=== PATIENT | female | born 1985 | race African-American/Black ===

== ENCOUNTER 2024-11-25 14:03 | Outpatient (AMB) | payer OTHER, SELFPAY ==
--- NOTE | 2024-11-25 14:28 | A.OFFPC_ITS ---
Vital Signs 11/25/24 14:30 Height 5 ft 7.72 in Weight 250 lb 8 oz BMI 38.4 BP 120/60 Blood Pressure Location Lt brachial Position Sitting Pulse 76 Pulse Source Pulse Oximeter Temp 97.5 F Temp Source Temporal Artery Scan Pulse Oximetry (%) 98 Oxygen Delivery Method Room Air Intake Visit Reasons: establish care Intake Note: Patient is a new patient here to establish care for Anemia. Transferring care from unknown. Medical records have not been requested and have not received. Requesting for tites for immunization. Hotel Front Desk Clerk Required: No Receptionist Clerk: Not Required per policy Accompanied by: Self / Same As Patient Allergies Seasonal Allergies Allergy (Intermediate, Verified 11/25/24 14:36) Runny Nose Tobacco use date assessed: 11/25/24 Dental Screening Dental Screen Date: 11/25/24 Did you have a dental visit in the last 12 months?: No Did you have a dental problem in the last 6 months where you did not have access to dental care?: No Was dental information given to patient?: No [facility] Surgical History (Updated 11/25/24 @ 14:38 by REED Parkinson) History of cystostomy History of ear, nose, and throat (ENT) surgery Family History (Updated 11/25/24 @ 14:38 by REED Parkinson) Other Mental health disorder Substance use disorder Social History (Updated 11/25/24 @ 14:38 by REED Parkinson) Housing: House Alcohol intake: current Alcohol intake frequency: a few times a week Patient Tobacco Use Status: Former Tobacco user e-Cigarette/Vaping Use: Former Use Second Hand Smoke Exposure: Yes service: No Current occupational status: employed and student Cognitive needs: No Hearing needs: No Vision needs: No Questionnaire PHQ-9 Over the last 2 weeks, how often have you been bothered by any of the following problems? 1. Little interest or pleasure in doing things: not at all 2. Feeling down, depressed, or hopeless: not at all 3. Trouble falling or staying asleep, or sleeping too much: not at all 4. Feeling tired or having little energy: not at all 5. Poor appetite or overeating: not at all 6. Feeling bad about yourself - or that you are a failure or have let yourself or your family down: not at all 7. Trouble concentrating on things, such as reading the newspaper or watching television: not at all 8. Moving or speaking so slowly that other people could have noticed. Or the opposite - being so fidgety or restless that you have been moving around a lot more than usual: not at all 9. Thoughts that you would be better off or of hurting yourself in some way: not at all Total score: 0 Depression Screening Interpretation: Negative Depression Screening Done: Yes Source: Developed by Drs. Junaid Coffman, Kisha Davis, Bon Ng and colleagues, with an educational brina from [employer]. Thrive Questionnaire Date Thrive assessed: 11/25/24 I am a: Patient What is your living situation today?: I have a steady place to live Within the past 12 months, did the food you bought not last and you didn't have the money to get more?: Never true Within the past 12 months, did you worry whether your food would run out before you got money to buy more?: Never true Do you have trouble paying for medicines?: No Do you have trouble getting transportation to medical appointments?: No Do you have trouble paying your heating and electricity bill?: No Do you have trouble taking care of your child, family member or friend?: No Do you have trouble with day-to-day activities such as bathing, preparing meals, shopping, managing finances, etc.?: No Are you currently unemployed and looking for a job?: No Are you interested in more education?: Yes Please select the resources that you would like help with: Education Currently or been in a relationship where the following occur: No concerns reported THRIVE Score: 0 AUDIT C Alcohol Use Questionnaire (AUDIT-C) 1. How often do you have a drink containing alcohol?: 2-4 times a month 2. How many drinks containing alcohol do you have on a typical day when you are drinking?: 1 or 2 3. How often do you have six or more drinks on one occasion?: Never Total Score: 2 DIA-7 AMB Questionnaire DIA-7 Date DIA - 7 assessed: 11/25/24 Feeling nervous, anxious, or on edge: 0 = Not at all Not being able to stop or control worryin = Not at all Worrying too much about different things: 0 = Not at all Trouble relaxin = Not at all Being so restless that it is hard to sit still: 0 = Not at all Becoming easily annoyed or irritable: 0 = Not at all Feeling afraid as if something awful might happen: 0 = Not at all Total DIA-7 score (0-4 normal; 5-9 mild; 10-14 moderate; 15-21 severe): 0 Source: Developed by Drs. Junaid Coffman, Kisha Davis, Bon Ng and colleagues, with an educational brina from [employer]. Physical exam (Primary Care) Vital Signs: Last Vital Signs Temp 97.5 F 11/25/24 14:30 Pulse 76 11/25/24 14:30 BP 120/60 11/25/24 14:30 Pulse Ox 98 11/25/24 14:30 Oxygen Delivery Method Room Air 11/25/24 14:30 BMI result Body Mass Index 38.4 Tobacco/Smoking Status: Tobacco use Status Tobacco use date assessed 11/25/24 11/25/24 14:39 Patient Tobacco Use Status Former Tobacco user 11/25/24 14:39 e-Cigarette/Vaping Use Former Use 11/25/24 14:39 PHQ-9: PHQ-9 Score PHQ-9: Total score 0 11/25/24 14:39 Depression Screening Interpretation: Negative Thrive Assessment: Date of Thrive Assessment Date Thrive assessed 11/25/24 11/25/24 14:39 Currently or been in a relationship where the following occur: No concerns reported Coding Level of Care Code New Pt Prev Care 40-64y(26128) Diagnoses Screening examination for infectious disease Z11.9 Annual physical exam Z00.00 Assessment & Plan Assessment & Plan (1) Screening examination for infectious disease: Code(s): Z11.9 - Encounter for screening for infectious and parasitic diseases, unspecified Plan: Blood work ordered (2) Annual physical exam: Code(s): Z00.00 - Encounter for general adult medical examination without abnormal findings Plan: Screening Mammogram ordered Plan History of Present Illness The patient is a 39-year-old female presenting to [facility] and requesting an annual physical. She has? missing immunization records that are needed for her upcoming nursing school program requirements. Her immunization history lacks documentation due to a loss from her previous healthcare provider, necessitating blood work to confirm immunity, particularly for hepatitis B and tetanus boosters, if indicated. 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 The patient has yet to pursue a diagnostic work-up for this condition. Concerns regarding obesity are mentioned, with an emphasis on evaluating hormone and cortisol levels due to challenges with weight loss. The patient admits to not having a consultation with a healthcare provider in almost ten years, apart from child health appointments. Health maintenance screenings are overdue, including a first-time mammogram and a Pap smear. Though not sexually active for the past three years, she seeks STD testing to cover all health bases. She plans to accomplish these health tasks before moving for education purposes. Social History - Occupation: gas truck driver, involves prolonged sitting. - Education: Enrolling in nursing school. - Sexual Activity: Not active for three years, yet requests comprehensive STD testing. - No recent primary healthcare provider engagement. Review of Systems - Musculoskeletal: Reports knee pain impacting mobility. - Endocrine: Reports difficulty losing weight, interested in hormone and cortisol evaluation. Physical Exam General: Appearance normal, both eyes and all related structures Nutritional Appearance: Well nourished Orientation/consciousness: Patient oriented x3 Limitations: Cannot bend, cannot do a full squat due to a bad knee Head: Normal to inspection Neck: Normal visual inspection Chest: Normal palpation of entire chest wall Respiratory: Normal respiratory effort Neurology: Patient oriented x3 Results Plan Blood work to establish immunization status, including hepatitis B and tetanus, will be done to meet nursing program needs. Routine blood tests will assess hormone levels, especially cortisol, to evaluate obesity-related concerns. Screening for breast and cervical cancer will be initiated with ordered mammogram and Pap smear tests. STD testing is advised and will be performed upon conservative request. Follow-up is scheduled in one month for results review and further assessments, particularly regarding knee pain, once additional requirements are indicated by education institutions or surgical departments. Patient was informed and verbally consented to the use of an ambient scribe for clinic note documentation during this visit. Discussion Notes I discussed obtaining blood work to verify immunization against hepatitis B and tetanus in line with school requirements. Testing for hormone and cortisol levels was proposed to explore reasons for the patient?s weight loss difficulties. I placed orders for a mammogram and Pap smear given the patient?s lack of screenings. We agreed on full STD testing for precautionary purposes. The patient was advised to initiate these investigations promptly and to return for further evaluation. Arrangements for follow-up are in place, with recommendations for an appointment next month on a . Guidance on addressing knee pain will follow upon further detailing of institutional health requirements. Patient Instructions - Complete blood work to evaluate immunization status and hormone levels. - Schedule and attend mammogram and Pap smear appointments. - Proceed with STD testing at your convenience. - Return in one month for evaluation of test results and follow-up care. - Ensure additional forms from school or surgeon are submitted for further requirements. - Address knee concerns in subsequent appointments as needed. Orders: Orders Complete Blood Count no Diff Today Z00.00 - Encounter for general adult medical examination without abnormal findings, Z11.9 - Encounter for screening for infectious and parasitic diseases, unspecified Lipid Panel Today Z00.00 - Encounter for general adult medical examination without abnormal findings, Z11.9 - Encounter for screening for infectious and parasitic diseases, unspecified Liver Panel Today Z00.00 - Encounter for general adult medical examination without abnormal findings, Z11.9 - Encounter for screening for infectious and parasitic diseases, unspecified Thyroid Stimulating Hormone Today Z00.00 - Encounter for general adult medical examination without abnormal findings, Z11.9 - Encounter for screening for infectious and parasitic diseases, unspecified UA and rflx microscopic Today Z00.00 - Encounter for general adult medical examination without abnormal findings, Z11.9 - Encounter for screening for infectious and parasitic diseases, unspecified CT NG by PCR Today Z00.00 - Encounter for general adult medical examination without abnormal findings, Z11.9 - Encounter for screening for infectious and parasitic diseases, unspecified Rubella IgG Antibody Today Z00.00 - Encounter for general adult medical examination without abnormal findings, Z11.9 - Encounter for screening for infectious and parasitic diseases, unspecified Mumps Virus IgG Antibody Today Z00.00 - Encounter for general adult medical examination without abnormal findings, Z11.9 - Encounter for screening for infectious and parasitic diseases, unspecified Basic Metabolic Panel Today Z00.00 - Encounter for general adult medical examination without abnormal findings, Z11.9 - Encounter for screening for infectious and parasitic diseases, unspecified T4 Thyroxine Today Z00.00 - Encounter for general adult medical examination without abnormal findings, Z11.9 - Encounter for screening for infectious and parasitic diseases, unspecified HIV Ab/Ag Today Z00.00 - Encounter for general adult medical examination without abnormal findings, Z11.9 - Encounter for screening for infectious and parasitic diseases, unspecified Syphilis Screen Today Z00.00 - Encounter for general adult medical examination without abnormal findings, Z11.9 - Encounter for screening for infectious and parasitic diseases, unspecified Rubeola IgG (Measles) Today Z00.00 - Encounter for general adult medical examination without abnormal findings, Z11.9 - Encounter for screening for infectious and parasitic diseases, unspecified MM screening mammo BI Today Z12.31 - Encounter for screening mammogram for malignant neoplasm of breast
[2024-11-25 14:30] VITALS: BP 120/60; PULSE 76; TEMP 36.4; O2SAT 98; BMI 38.4
== END 2024-11-25 15:11 | disposition home or self-care (01) ==
PROVIDERS: Visit Provider Internal Medicine
DX: Z11.9 Encounter for screening for infectious and parasitic diseases, unspecified (principal); Z00.00 Encounter for general adult medical examination without abnormal findings

== ENCOUNTER → 2024-11-25 14:03 | Outpatient (BNVA) | payer OTHER, SELFPAY | PROVIDERS: Visit Provider Internal Medicine | DX: Z00.00 Encounter for general adult medical examination without abnormal findings (principal) | CPT/HCPCS: 99386 ==

== ENCOUNTER 2024-12-13 08:57 | Outpatient (REF) | payer OTHER, SELFPAY ==
[2024-12-13 14:26] LABS: Appearance Urine Clear; Color Urine Yellow; Glucose Urine UA Negative (Negative); Leukocyte Esterase Urine Negative (Negative); Nitrite Urine Negative (Negative); PH 8.5 (5.0-9.0); Urine Blood Negative (Negative); Urine Ketones Negative (Negative); Urine Protein Negative (Neg-Trace)
[2024-12-13 14:27] LABS: Hematocrit 31.7 % (37.0-47.0); Mean Corpuscular HGB Conc 28.4 g/dl (31.0-35.0); Mean Corpuscular Hemoglobin 20.6 pg (27.0-33.0); Mean Corpuscular Volume 72.7 fL (80.0-98.0); Mean Platelet Volume 10.6 fL (9.4-12.3); Platelet Count 449 X10*3/uL (160-400); Red Blood Count 4.36 X10*6/uL (4.20-5.50); Red Cell Distribution Width 21.2 % (11.0-16.0); White Blood Count 5.6 X10*3/uL (4.8-10.8)
[2024-12-13 14:47] LABS: Alanine Aminotransferase 18 U/L (0-31); Albumin Level 3.8 g/dL (3.5-5.0); Alkaline Phosphatase 42 U/L (39-117); Anion Gap 10 (12-20); Aspartate Amino Transferase 26 U/L (5-31); Bilirubin Direct 0.2 mg/dL (0.0-0.5); Bilirubin Total 0.5 mg/dL (0.0-1.0); Blood Urea Nitrogen 10 mg/dL (9-16); Calcium 8.6 mg/dL (8.4-10.2); Carbon Dioxide 25 mmol/L (22-29); Chloride 106 mmol/L (96-108); Cholesterol 169 mg/dL (<200); Estimated Glomerular Filt Rate > 60; Glucose Random 91 mg/dL (60-115); HDL Cholesterol 68 mg/dL (>40); LDL Cholesterol Calculated 84 mg/dL (<100); Potassium 3.8 mmol/L (3.3-5.1); Sodium 137 mmol/L (135-145); Total Protein 7.3 g/dL (6.5-8.0); Triglycerides 85 mg/dL (<150)
[2024-12-13 14:57] LABS: Thyroid Stimulating Hormone 0.83 uIU/mL (0.32-4.0)
[2024-12-13 15:02] LABS: T4 Thyroxine 5.8 ug/dL (4.5-12.0)
[2024-12-14 05:19] LABS: Syphilis Screen Nonreactive (Nonreactive)
[2024-12-14 05:31] LABS: HIV AB/AG Nonreactive (Nonreactive); HIV Num 1 0.09 S/CO (0.00-0.99)
[2024-12-14 19:02] LABS: Rubella IgG Antibody 1.56 Index
[2024-12-15 03:32] LABS: Rubeola IgG (Measles) >300.00 AU/mL
== END 2024-12-13 08:58 | disposition home or self-care (01) ==
LOC: HO.CHCLDS 08:57
PROVIDERS: Visit Provider Internal Medicine
DX: Z00.00 Encounter for general adult medical examination without abnormal findings (principal); Z11.9 Encounter for screening for infectious and parasitic diseases, unspecified
CPT/HCPCS: 36415; 80048; 80061; 80076; 81003; 84436; 84443; 85027; 86735; 86762; 86765; 86780; 87389

== ENCOUNTER 2024-12-15 09:20 | Outpatient (REF) | payer OTHER, SELFPAY | END 2024-12-15 09:21 | disposition home or self-care (01) | LOC: HO.LAB 09:20 | PROVIDERS: PCP Internal Medicine; Visit Provider Advanced Practice Midwife | DX: Z01.419 Encounter for gynecological examination (general) (routine) without abnormal findings (principal); Z11.3 Encounter for screening for infections with a predominantly sexual mode of transmission; D22.9 Melanocytic nevi, unspecified | CPT/HCPCS: 81515; 86780; 86803; 87340; 87389; 87491; 87591; 87626; 88175; 99386; 99459 ==

== ENCOUNTER 2024-12-15 09:20 | Outpatient (AMB) | payer OTHER, SELFPAY ==
[2024-12-15 09:23] VITALS: BP 118/70; BMI 38.0
--- NOTE | 2024-12-15 09:23 | MHC.OFFVIS ---
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 Perianesthesia Rn Required: No Perianesthesia Rn Services: Perianesthesia Rn Present Information Interpreted: clinical only Art Specialist: Art Specialist Present Allergies Seasonal Allergies Allergy (Intermediate, Verified 12/15/24 09:24) Runny Nose Medication List - Last Reconciled 12/15/24 by Heidi Barragan CNM No Known Home Meds Is last menstrual period known: Yes Last menstrual period: 12/04/24 HPI HPI DELPHI PROGRAMMER annual exam/Internal Referral: Details: 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 She is from this area originally but she was in [place] for several years and just moved back about 6 months ago. 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 She has a bad right knee had gives her lots of difficulty she is waiting for an orthopedic referral to have it evaluated she is able to exercise on an elliptical to try to keep it moving but her drive in positions give her difficulty.. She is a having had 1 very early miscarriage and 1 2nd trimester loss a 20 +weeks it was during COVID so they could not tell her what possible causes could have been she herself had COVID at the time. She is not sexually active and has not been for about 3 years but if she did become active she would use condoms she is interested in getting testing for all relevant STDs just to check everything out. Her primary care provider has ordered her mammogram and that is going to happen next week she has an appointment with her primary care provider tomorrow. [facility] Surgical History History of cystostomy History of ear, nose, and throat (ENT) surgery Family History Other Mental health disorder Substance use disorder Social History Housing: House Alcohol intake: current Alcohol intake frequency: a few times a week Patient Tobacco Use Status: Former Tobacco user e-Cigarette/Vaping Use: Former Use Second Hand Smoke Exposure: Yes service: No Current occupational status: employed and student Cognitive needs: No Hearing needs: No Vision needs: No Female Reproductive History Menstrual Age of Menarche: 15 Duration of menses: 3-5 days Date of last menstrual period: 12/04/24 control method: none Total pregnancies: 0 History of abnormal pap smear: No (previous pap ,2020,neg.per pt.) Physical Exam Vital Signs: Last Vital Signs BP 118/70 12/15/24 09:23 BMI result Body Mass Index 38.0 Const General: healthy appearing, comfortable, no acute distress, well developed and alert Nutritional Appearance: average body habitus Orientation/consciousness: patient oriented x3 Limitations: no limitations HEENT Head: Yes normocephalic Neck Neck: Yes normal visual inspection Thyroid: Thyroid normal Chest Chest palpation & inspection: normal inspection of the chest Breast/axilla inspection: normal inspection of the breasts and normal inspection of the axillae Breast/axilla palpation: normal palpation of the breasts and normal palpation of the axillae Resp Effort & Inspection: normal respiratory effort GI Inspection: Yes normal to inspection, No Abdominal wall edema and No distended Palpation (GI): Soft to palpation and nontender Other: External exam within normal limits with the exception of a tiny mole on right labia and a larger 2 cm irregular rather bumpy mole that is dark pigmented on left side of perineum. She said a cyst was removed from it about 10 years ago. Vagina pink and moist scant white discharge consistent with normal discharge possible luteal phase cervix appears multiparous, round pink smooth healthy appearing, scant bleeding with Cytobrush. Cervix and uterus mobile nontender not enlarged adnexa nonenlarged nontender good tone with kegel. General: Yes bladder normal to palpation External Female Exam: normal external appearance and normal appearance of the urethra Speculum Exam - Vagina: normal appearance of the vagina, normal palpation and normal vaginal discharge Speculum Exam - Cervix: normal appearance of the cervix, normal palpation and nontender Bimanual exam- vagina & uterus: normal bimanual exam, normal palpation, uterine size normal, bladder normal to palpation, consistency normal, normal palpation, uterine mobility normal, uterine shape normal, No Cervical tenderness present, non-tender and no cervical motion tenderness Bimanual Exam- Adnexa, other: normal adnexae, no masses, normal and No adnexal tenderness Neuro General: patient oriented x3 Assessment & Plan Assessment & Plan (1) Encounter for screening examination for sexually transmitted disease: Code(s): Z11.3 - Encounter for screening for infections with a predominantly sexual mode of transmission Category: Medical (2) Well woman exam with routine gynecological exam: Code(s): Z01.419 - Encounter for gynecological examination (general) (routine) without abnormal findings Category: Medical (3) Cervical cancer screening: Code(s): Z12.4 - Encounter for screening for malignant neoplasm of cervix Category: Medical (4) Skin mole: Comment: On perineum left side, patient states a cyst was removed from it 10 years ago I recommend dermatological evaluation.... Code(s): D22.9 - Melanocytic nevi, unspecified Category: Medical Plan -----Discussed in this visit the following: healthy balanced diet, regular and consistent exercise, getting recommended health screens, doing the best she can for her particular health concerns, kegel exercises, pap smear screening and followup recommendations, mammography screening and SBE, normal changes in cycles in her life stage--- . Reviewed all in HPI. She is set up for her mammogram she is awaiting a ortho referral to check on her knee she is staying active with her exercise trying to be as healthy as she can not planning any sexual activity and if she did she would use condoms and be as careful as she can be. She is interested in getting STI testing just at ensure a negative baseline and I am ordering testing for HIV hep B hep C syphilis and today during the exam we did gonorrhea and chlamydia screening as well as trichomoniasis and also testing for BV and yeast and I did explain that these are normal common findings and do not need to be treated unless she is symptomatic and discussed symptoms. I gave her patient portal pamphlet and she will investigate how to get on it for her results.. I do not know of the best placed to refer her for dermatology she is seeing her doctor tomorrow and I recommend she have a conversation about that I would recommend getting the mole checked out although it is reassuring that she had it evaluated at least 10 years ago but it is in an area that is hard for her to monitor. Otherwise RTC or PRN. Orders: Orders CT NG by PCR Today N89.8 - Other specified noninflammatory disorders of vagina, Z20.2 - Contact with and (suspected) exposure to infections with a predominantly sexual mode of transmission Pap Smear Today Z00.00 - Encounter for general adult medical examination without abnormal findings HIV Ab/Ag Today Z11.3 - Encounter for screening for infections with a predominantly sexual mode of transmission Syphilis Screen Today Z11.3 - Encounter for screening for infections with a predominantly sexual mode of transmission Bacterial Vaginosis Panel Today N89.8 - Other specified noninflammatory disorders of vagina Hepatitis B Surface Antigen Today Z11.3 - Encounter for screening for infections with a predominantly sexual mode of transmission Hepatitis C Antibody Today Z11.3 - Encounter for screening for infections with a predominantly sexual mode of transmission Coding Level of Care Code New Pt Prev Care 40-64y(89273) Diagnoses Encounter for screening examination for sexually transmitted disease Z11.3 Well woman exam with routine gynecological exam Z01.419 Cervical cancer screening Z12.4 Skin mole D22.9
== END 2024-12-15 10:59 | disposition home or self-care (01) ==
LOC: HO.HWSM 09:21
PROVIDERS: PCP Internal Medicine; Visit Provider Advanced Practice Midwife
DX: Z01.419 Encounter for gynecological examination (general) (routine) without abnormal findings (principal); D25.9 Leiomyoma of uterus, unspecified
CPT/HCPCS: 99386; 99459

== ENCOUNTER 2024-12-15 09:59 | Outpatient (REF) | payer OTHER, SELFPAY ==
[2024-12-15 12:11] LABS: HIV AB/AG Nonreactive (Nonreactive); HIV Num 1 0.09 S/CO (0.00-0.99); Hepatitis B Surface Antigen Negative (Negative); ~Hepatitis C Antibody Nonreactive (Nonreactive)
[2024-12-15 12:16] LABS: Syphilis Screen Nonreactive (Nonreactive)
[2024-12-15 21:40] LABS: Bacterial Vaginosis PCR NEGATIVE (Negative); Candida Group PCR NOT DETECTED (Not Detect); Candida glab krusei PCR NOT DETECTED (Not Detect); Trichomonas vaginalis PCR NOT DETECTED (Not Detect)
[2024-12-15 21:55] LABS: CT PCR NOT DETECTED (Not Detect.); NG PCR NOT DETECTED (Not Detect.)
[2024-12-22 12:32] LABS: HPV Genotype 16 Negative (Negative); HPV Genotype 18 Negative (Negative); HPV High Risk Negative (Negative)
== END 2024-12-15 10:00 | disposition home or self-care (01) ==
LOC: HO.LNP 09:59
PROVIDERS: Visit Provider Advanced Practice Midwife
DX: Z00.00 Encounter for general adult medical examination without abnormal findings (principal); N89.8 Other specified noninflammatory disorders of vagina; Z20.2 Contact with and (suspected) exposure to infections with a predominantly sexual mode of transmission; Z11.3 Encounter for screening for infections with a predominantly sexual mode of transmission; Z11.51 Encounter for screening for human papillomavirus (HPV)
CPT/HCPCS: 81515; 86780; 86803; 87340; 87389; 87491; 87591; 87626; 88175

== ENCOUNTER 2024-12-15 10:22 | Outpatient (REF) | payer OTHER, SELFPAY | END 2024-12-15 10:23 | disposition home or self-care (01) | LOC: HO.HHCL 10:22 | PROVIDERS: Visit Provider Advanced Practice Midwife | DX: Z13.89 Encounter for screening for other disorder (principal) ==

== ENCOUNTER 2024-12-16 10:20 | Outpatient (REF) | payer OTHER, SELFPAY | END 2024-12-16 10:21 | disposition home or self-care (01) | LOC: HO.MAMMO 10:20 | PROVIDERS: PCP Internal Medicine; Visit Provider Internal Medicine | DX: Z12.31 Encounter for screening mammogram for malignant neoplasm of breast (principal) | CPT/HCPCS: 77063; 77067 ==

== ENCOUNTER → 2024-12-16 10:30 | Outpatient (BNV) | payer OTHER, SELFPAY | PROVIDERS: PCP Internal Medicine; Visit Provider Internal Medicine | DX: Z12.31 Encounter for screening mammogram for malignant neoplasm of breast (principal) | CPT/HCPCS: 77063; 77067 ==

== ENCOUNTER 2024-12-30 10:54 | Outpatient (REF) | payer OTHER, SELFPAY ==
--- NOTE | ~2024-12-30 | XR_ITS ---
EXAMINATION: XR KNEE 4 OR MORE VIEWS RIGHT HISTORY: M25.561 - Pain in right knee COMPARISON: There are no prior studies available for comparison. FINDINGS: Five views of the right knee are submitted. Osseous mineralization is normal. There is no fracture or dislocation. The joint spaces are preserved. The soft tissues are unremarkable. There is no joint effusion. XR/XR knee RT 4V IMPRESSION: Unremarkable examination of the right knee. Electronically signed by: Junaid Luke MD 12/30/2024 02:59 PM EDT
[2024-12-30 14:07] LABS: MANUAL DIFF FLAG NO
[2024-12-30 14:51] LABS: Basophils Percent Auto 0.5 % (0-2); Eosinophils Absolute Auto 0.1 X10*3/uL (0.0-0.4); Eosinophils Percent Auto 1.6 % (0-4); Hematocrit 32.8 % (37.0-47.0); Hemoglobin 9.3 g/dl (12.0-16.0); Imm Gran Abs Auto 0.01 X10*3/uL (0.00-0.03); Imm Gran Pct Auto 0.2 % (0.0-0.4); Lymphocytes Absolute Auto 1.9 X10*3/uL (1.2-4.9); Lymphocytes Percent Auto 33.2 % (20-40); Mean Corpuscular HGB Conc 28.4 g/dl (31.0-35.0); Mean Corpuscular Hemoglobin 21.3 pg (27.0-33.0); Mean Corpuscular Volume 75.2 fL (80.0-98.0); Mean Platelet Volume 11.1 fL (9.4-12.3); Monocytes Absolute Auto 0.6 X10*3/uL (0.1-1.2); Monocytes Percent Auto 10.3 % (2-11); Neutrophils Absolute Auto 3.1 x10*3/uL (2.0-8.3); Neutrophils Percent Auto 54.2 % (45-73); Platelet Count 355 X10*3/uL (160-400); Red Blood Count 4.36 X10*6/uL (4.20-5.50); Red Cell Distribution Width 23.6 % (11.0-16.0); White Blood Count 5.6 X10*3/uL (4.8-10.8)
[2024-12-30 15:26] LABS: Iron 22 mcg/dL (30-160); Percent Iron Saturation 7 % (15-50); Total Iron Binding Capacity 312 mcg/dL (228-428); Unsaturated Iron Binding 290 ug/dL
[2024-12-30 15:27] LABS: Ferritin 21 ng/mL (10-250)
[2024-12-30 15:30] LABS: Estimated Average Glucose 97 mg/dL; Hemoglobin A1C 81.9623 umol/L; Total Hemoglobin (HGBA1C) 2642.1077 umol/L
[2024-12-30 16:54] LABS: Vitamin D 25-OH Total 11.5 ng/mL (>30)
[2024-12-30 17:13] LABS: Folate 8.6 ng/mL (> or = 4.0); Vitamin B12 274 pg/mL (200-900)
[2024-12-31 04:30] LABS: HBS Num1 96.17 mIU/mL (0-7.99); ~Hepatitis B Surface Antibody REACTIVE (Nonreactive)
[2024-12-31 18:44] LABS: Rubeola IgG (Measles) >300.00 AU/mL
== END 2024-12-30 10:55 | disposition home or self-care (01) ==
LOC: HO.CHCLDS 10:54
PROVIDERS: PCP Internal Medicine; Visit Provider Physician Assistant Medical
DX: D22.9 Melanocytic nevi, unspecified (principal); Z01.84 Encounter for antibody response examination; Z23 Encounter for immunization; R79.89 Other specified abnormal findings of blood chemistry; M25.561 Pain in right knee; D64.9 Anemia, unspecified; D75.839 Thrombocytosis, unspecified; Z00.00 Encounter for general adult medical examination without abnormal findings
CPT/HCPCS: 36415; 73564; 82306; 82607; 82728; 82746; 83036; 83540; 83735; 85025; 86706; 86735; 86762; 86765; 86787; 90471; 90715; 99212

== ENCOUNTER 2024-12-30 12:53 | Outpatient (AMB) | payer OTHER, SELFPAY ==
--- NOTE | 2024-12-30 12:59 | A.OFFPC_ITS ---
Vital Signs 12/30/24 13:01 Height 5 ft 8 in Weight 248 lb BMI 37.7 BP 114/70 Blood Pressure Location Lt brachial Position Sitting Pulse 67 Pulse Source Pulse Oximeter Pulse Oximetry (%) 99 Oxygen Delivery Method Room Air Intake Visit Reasons: 1mth f/u Seam Finisher Required: No Accompanied by: Self / Same As Patient Allergies Seasonal Allergies Allergy (Intermediate, Verified 12/30/24 13:13) Runny Nose Medication List - Last Reconciled 12/30/24 by Haily Costello PA-C No Known Home Meds Tobacco use date assessed: 11/25/24 Dental Screening Dental Screen Date: 11/25/24 HPI 1mth f/u HPI Details History of Present Illness The patient is a 39-year-old female presenting for a routine follow-up visit regarding anemia and thrombocytosis. Recent lab results show a hemoglobin level of 9 g/dL, with fatigue being a notable complaint. Her menstrual cycles are typically four days in length, with heavier bleeding during the first two days. A past cyst removal from the inner thigh has prompted recent dermatological concerns due to a residual lesion that might suggest malignancy. She reports chronic right knee pain with clicking noises, particularly when ascending stairs, affecting her mobility. She reports she has not had imaging of her right knee and has not been seen by orthopedic for this and would like imaging and orthopedic referral. Patient also reports she is currently in college and needs a Tdap vaccine. She also needs her antibodies for hepatitis B and to be screen for immunity for MMR and she is requesting that at this time. She is unsure when her last Tdap vaccine was. Social History - The patient reports mobility challenge s due to right knee pain, particularly when climbing stairs. - Family history includes no reported ca ses of colon cancer. - The patient's recent diet or exercise habits were not discussed in the visit. [facility] Medical History Elevated platelet count Need for Tdap vaccination Right knee pain Immunity status testing Anemia Surgical History History of cystostomy History of ear, nose, and throat (ENT) surgery Family History Family/Other Mental health disorder Substance use disorder Social History Housing: House Alcohol intake: current Alcohol intake frequency: a few times a week Patient Tobacco Use Status: Former Tobacco user e-Cigarette/Vaping Use: Former Use Second Hand Smoke Exposure: Yes service: No Current occupational status: employed and student Cognitive needs: No Hearing needs: No Vision needs: No Female Reproductive History Menstrual Age of Menarche: 15 Questionnaire Thrive Questionnaire Date Thrive assessed: 11/25/24 I am a: Patient What is your living situation today?: I have a steady place to live Within the past 12 months, did the food you bought not last and you didn't have the money to get more?: Never true Within the past 12 months, did you worry whether your food would run out before you got money to buy more?: Never true Do you have trouble paying for medicines?: No Do you have trouble getting transportation to medical appointments?: No Do you have trouble paying your heating and electricity bill?: No Do you have trouble taking care of your child, family member or friend?: No Do you have trouble with day-to-day activities such as bathing, preparing meals, shopping, managing finances, etc.?: No Are you currently unemployed and looking for a job?: No Are you interested in more education?: Yes Please select the resources that you would like help with: Education Currently or been in a relationship where the following occur: No concerns reported THRIVE Score: 0 DIA-7 AMB Questionnaire DIA-7 Date DIA - 7 assessed: 11/25/24 Source: Developed by Drs. Junaid Coffman, Kisha Davis, Bon Ng and colleagues, with an educational brina from [employer]. Review of Systems Const Details: Review of Systems - Hematologic: Reports fatigue. - Musculoskeletal: Reports right knee pain with clicking during motion. - Dermatologic: Reports history of a cyst removal and current lesion on inner thigh; no bleeding noted. - Reproductive: Denies vaginal bleeding; menstrual cycles last four days. Physical exam (Primary Care) Vital Signs: Last Vital Signs Pulse 67 12/30/24 13:01 BP 114/70 12/30/24 13:01 Pulse Ox 99 12/30/24 13:01 Oxygen Delivery Method Room Air 12/30/24 13:01 Care Plan Goal for BP management: <130/90 at Goal BMI result Body Mass Index 37.7 BMI Assessment/Plan discussion: High BMI High, discussed plan: lifestyle, weight reduction, dietary, physical activity and alcohol moderation Tobacco/Smoking Status: Tobacco use Status Tobacco use date assessed 11/25/24 12/30/24 13:05 Patient Tobacco Use Status Former Tobacco user 12/30/24 13:05 e-Cigarette/Vaping Use Former Use 12/30/24 13:05 Thrive Assessment: Date of Thrive Assessment Date Thrive assessed 11/25/24 12/30/24 13:05 Currently or been in a relationship where the following occur: No concerns reported Const Other: Physical Exam Appearance: Alert. Oriented X3. No acute distress. Head: Normal external exam. Normocephalic. Atraumatic. Eyes: Pupils are equal, round, and reactive to light. Extraocular movements intact. Conjunctiva and sclera normal. Eyelids normal. Throat: Pharynx normal. Uvula midline. Moist mucous membranes. Neck: Normal inspection. Neck supple. Full range of motion. Cardiovascular: Normal heart rate and rhythm. Respiratory: No respiratory distress. Painless inspiration. Back: Full range of motion noted. Skin: Skin warm and dry. Normal skin color. Normal skin turgor. Extremities: No lower extremity edema.Right knee pain noted with clicking sound upon movement. No obvious deformity or obvious joint effusion or signs of infection or obvious ligamentous injury or laxity noted. Patient has a normal steady gait. Otherwise all other extremities exhibit normal range of motion. Neuro: Oriented X 3. No motor deficit. No sensory deficit. Reflexes normal. Immunizations Boostrix Tdap 2.5 Lf unit-8 mcg-5 Lf/0.5 mL intramuscular syringe Performing Provider: Haily Costello PA-C [facility] Administered by: Christen Cuellar LPN on 12/30/24 13:41 Dose Route Admin Location Dispensed Lot Number Expiration Date NDC Balance Wheel Screw Hole Driller 0.5 mL IM Left Deltoid 0.5 mL [id number] 04/01/27 [id number] [employer] VIS Given Date VIS Provided VIS Publication Date 12/30/24 Single Vaccine 21 Eligibility Eligibility Date Funding Source Not [facility] Eligible 04/10/25 Private Results Reviewed Results Reviewed: Results - Labs: Hemoglobin level of 9 g/dL indicating anemia; elevated platelet count indicating thrombocytosis. Coding Level of Care Code Est Pt Level 4 (03470) Complex EM visit Add On G2211 Diagnoses Skin mole D22.9 Immunity status testing Z01.84 Elevated platelet count R79.89 Need for Tdap vaccination Z23 Right knee pain M25.561 Anemia D64.9 Assessment & Plan Assessment & Plan (1) Skin mole: Comment: On perineum left side, patient states a cyst was removed from it 10 years ago I recommend dermatological evaluation.... Code(s): D22.9 - Melanocytic nevi, unspecified Category: Medical Plan: Plan requires dermatological assessment by [facility] for evaluation due to potential severity concerns and possible malignancy risk. Condition is chronic and stable continue to monitor. (2) Immunity status testing: Code(s): Z01.84 - Encounter for antibody response examination Category: Medical Plan: Testing for MMR antibodies, hepatitis B antibody at this time for college. Will continue to monitor. (3) Elevated platelet count: Code(s): R79.89 - Other specified abnormal findings of blood chemistry Category: Medical Plan: Plan includes repeat laboratory tests to monitor platelet levels and to address further evaluation if abnormalities remain. Condition is chronic and stable continue to monitor. (4) Need for Tdap vaccination: Code(s): Z23 - Encounter for immunization Category: Medical Plan: Tdap vaccine given for college at this time. (5) Right knee pain: Code(s): M25.561 - Pain in right knee Category: Medical Plan: Plan proposes obtaining an x-ray to analyze joint structure and to guide potential subsequent interventions or specialty consultations. Condition is chronic and stable continue to monitor. (6) Anemia: Code(s): D64.9 - Anemia, unspecified Category: Medical Plan: Plan involves continuation with scheduled lab tests including CBC to identify underlying causes and necessitates a hematology referral if results suggest further investigation. Condition is chronic and stable continue to monitor. Plan Plan Patient was informed and verbally consented to the use of an ambient scribe for clinic note documentation during this visit. 1. Possible Melanocytic Nevus Plan requires dermatological assessment by [facility] for evaluation due to potential severity concerns and possible malignancy risk. 2. Knee Pain, Right Plan proposes obtaining an x-ray to analyze joint structure and to guide potential subsequent interventions or specialty consultations. 3. Anemia Plan involves continuation with scheduled lab tests including CBC to identify underlying causes and necessitates a hematology referral if results suggest further investigation. 4. Thrombocytosis Plan includes repeat laboratory tests to monitor platelet levels and to address further evaluation if abnormalities remain. Discussion Notes I discussed the patient's low hemoglobin and elevated platelet count, emphasizing the importance of repeat laboratory evaluations to confirm and further investigate these hematological abnormalities. The need for potential referral to a drier operator head was also outlined if laboratory abnormalities persist, particularly to evaluate for iron-deficiency anemia or a hematological disorder such as thalassemia. Regarding her dermatological condition, I recommended an urgent dermatological evaluation to explore the lesion on the in ner thigh, emphasizing the possibility of malignancy. The patient's knee pain was discussed with focus on immediate x-ray imaging to assess for underlying structural issues before any further orthopedic referrals. Follow-up and management plans were emphasized with clarity, providing the patient understanding of next steps in care and evaluation. Orders: Orders Hemoglobin A1c Today Z00.00 - Encounter for general adult medical examination without abnormal findings Hepatitis B Surface Antibody Today Z01.84 - Encounter for antibody response examination MMR IgG Measles Mumps Rubella Today Z01.84 - Encounter for antibody response examination Varicella IgG Antibody Today Z01.84 - Encounter for antibody response examination Vitamin B12 and Folate Today Z00.00 - Encounter for general adult medical examination without abnormal findings TDaP Immunization Today Z23 - Encounter for immunization Vitamin D 25-OH Total Today Z00.00 - Encounter for general adult medical examination without abnormal findings Magnesium Today Z00.00 - Encounter for general adult medical examination without abnormal findings XR knee RT 4V Today M25.561 - Pain in right knee Referrals Orthopedics Referral M25.561 - Pain in right knee Dermatology Referral D22.9 - Melanocytic nevi, unspecified Patient Instructions: Patient Instructions - Return for scheduled blood tests to monitor hemoglobin and platelet levels. - Schedule and attend the dermatological appointment for evaluation of the inner thigh lesion. - Obtain an x-ray for the right knee from the radiology department. - Monitor symptoms, and report any increase in fatigue, changes in the lesion, or worsening knee pain. - Complete the patient portal setup to access test results and communications.
[2024-12-30 13:01] VITALS: BP 114/70; PULSE 67; O2SAT 99; BMI 37.7
== END 2024-12-30 13:39 | disposition home or self-care (01) ==
LOC: HO.HMCH 12:53
PROVIDERS: Visit Provider Physician Assistant Medical
DX: Z23 Encounter for immunization (principal)

== ENCOUNTER → 2024-12-30 14:06 | Outpatient (BNV) | payer OTHER, SELFPAY | PROVIDERS: PCP Internal Medicine; Visit Provider Radiology Diagnostic Radiology | DX: M25.561 Pain in right knee (principal) | CPT/HCPCS: 73564 ==

== ENCOUNTER → 2025-01-26 13:40 | Outpatient (BNV) | payer OTHER, SELFPAY | PROVIDERS: PCP Physician Assistant Medical; Referring Provider Physician Assistant Medical; Visit Provider Nurse Practitioner Family | DX: D64.9 Anemia, unspecified (principal) | CPT/HCPCS: 99204 ==